=== PATIENT | female | born 2000 | race Caucasian/White ===

== ENCOUNTER 2022-09-05 09:25 | Emergency (ER) | payer BC ==
[~2022-09-05] VITALS: Ht 162.5 cm; Wt 97.5 kg
[2022-09-05 10:44] LABS: BASO % 0.6 % (0.0-1.0); EOS # 0.4 10*3/uL (0.0-0.4); LYMPH # 2.1 10*3/uL (1.3-4.4); LYMPH % 30.2 % (27.0-41.0); MEAN CELL VOLUME 83.5 fl (81.0-99.0); MEAN CORPUSCULAR HGB 27.1 pg (27.0-31.0); MEAN CORPUSCULAR HGB CONC 32.5 g/dl (33.0-37.0); MEAN PLATELET VOLUME 10.5 fl (9.6-12.3); MONO # 0.4 10*3/uL (0.1-1.0); MONO % 6.3 % (3.0-9.0); NEUT # 3.8 10*3/uL (2.3-7.9); NEUT % 56.8 % (47.0-73.0); PLATELET COUNT AUTOMATED 282 10*3/uL (130-400); RED BLOOD COUNT 4.79 10*6/uL (4.10-5.10); RED CELL DISTRI WIDTH 14.2 % (0-14.5); WHITE BLOOD COUNT 6.8 10*3/uL (4.8-10.8)
[2022-09-05 11:05] LABS: ALKALINE PHOSPHATASE 60 U/L (46-116); BUN 7 mg/dl (9-23); CHLORIDE 106 mmol/L (98-107); POTASSIUM 4.2 mmol/L (3.4-5.1); SGPT/ALT 18 U/L (10-49); TOTAL PROTEIN 7.2 gm/dL (6.0-8.0)
[2022-09-05 11:07] LABS: B-hCG (QUALITATIVE) NEGATIVE (NEGATIVE)
== END 2022-09-05 11:30 | disposition home or self-care (01) ==
LOC: ED 09:25
PROVIDERS: Internal Medicine
DX: N92.6 Irregular menstruation, unspecified (principal); R42 Dizziness and giddiness; R51.9 Headache, unspecified

== ENCOUNTER 2023-07-24 09:44 | Emergency (ER) | payer SELFPAY ==
[~2023-07-24] VITALS: Ht 162.5 cm; Wt 99.8 kg
[2023-07-24 10:13] LABS: BILIRUBIN Negative (Negative); BLOOD 2+ (Negative); CLARITY Cloudy (Clear); COLOR Yellow (Yellow); GLUCOSE Negative (Negative); KETONE Negative (Negative); LEUKO ESTERASE 2+ (Negative); NITRITE Negative (Negative); PH 7.5 (4.5-8.0); SPECIFIC GRAVITY 1.015 (1.001-1.030)
[2023-07-24 10:30] LABS: BACTERIA TRACE; WBC TNTC wbc/hpf (0-5)
[2023-07-24] MEDS ORDERED: Ondansetron4 MG PO (12:50)
== END 2023-07-24 12:54 | disposition home or self-care (01) ==
LOC: ED 09:44
PROVIDERS: Emergency Medicine
DX: R10.12 Left upper quadrant pain (principal); R11.0 Nausea; R35.0 Frequency of micturition